=== PATIENT | female | born 1980 | race American Indian/Alaskan Native ===

== ENCOUNTER 2016-12-17 07:48 | Emergency (ER) | payer SELFPAY ==
[2016-12-17 08:06] VITALS: BP 132/84
[2016-12-17 08:35] LABS: Basophils % (Auto) 0.5 % (0.0-1.8); Eosinophils % (Auto) 0.9 % (0.0-4.3); Hematocrit 40.3 % (30.3-42.9); Mean Corpuscular HGB Conc 32 % (30-34); Platelet Count 285 K/mm3 (140-440); Red Blood Count 5.88 M/mm3 (3.65-5.03); Red Cell Distribution Width 15.5 % (13.2-15.2); White Blood Count 8.5 K/mm3 (4.5-11.0)
[2016-12-17 08:43] LABS: Mean Corpuscular Hemoglobin 22 pg (28-32); Mean Corpuscular Volume 69 fl (79-97)
[2016-12-17 08:43] LABS: Bacteria,Urine 1+ /HPF (Negative); Bilirubin,Urine NEG (Negative); Blood,Urine LG (Negative); Ketones,Urine NEG (Negative); Leukocyte Esterase,Urine LG (Negative); Mucus,Urine FEW /HPF; Nitrite,Urine NEG (Negative)
[2016-12-17 08:49] LABS: RBC,Urine > 182.0 /HPF (0.0-6.0)
[2016-12-17] MEDS ORDERED: XYLOCAINE 1% MPF 5 mL INFILTRATI ONE (10:01)
[2016-12-17] MEDS ORDERED: ZITHROMAX PO ONE (10:01)
[2016-12-17] MEDS ORDERED: ROCEPHIN IM ONE (10:01)
--- NOTE | 2016-12-17 10:02 | Emergency Department Report ---
ED Female HPI - General Chief complaint: Vaginal Bleeding Stated complaint: VAGINAL BLEEDING Time Seen by Provider: 12/17/16 09:52 Source: patient Mode of arrival: Ambulatory Limitations: No Limitations - Related Data Allergies Allergy/AdvReac Type Severity Reaction Status Date / Time No Known Allergies Allergy Verified 12/17/16 08:02 ED Review of Systems ROS: Stated complaint: VAGINAL BLEEDING Other details as noted in HPI ED Past Medical Hx - Past Medical History Previous Medical History?: No - Surgical History Past Surgical History?: No - Social History Smoking Status: Never Smoker Substance Use Type: None ED Physical Exam - General Limitations: No Limitations ED Course Vital Signs 12/17/16 08:03 Temperature 98.6 F Pulse Rate 94 H Respiratory 20 Rate Blood Pressure 132/84 O2 Sat by Pulse 100 Oximetry ED Medical Decision Making - Lab Data Result diagrams: 12/17/16 08:19 Critical care attestation.: If time is entered above; I have spent that time in minutes in the direct care of this critically ill patient, excluding procedure time. ED Disposition Condition: Stable Referrals: PRIMARY CARE, [Primary Care Provider] - 3-5 Days
--- NOTE | 2016-12-17 10:54 | Emergency Department Report ---
Entered by NAOMY MCFADDEN, acting as scribe for KALYAN SOLORZANO PA. ED Female HPI - General Chief complaint: Vaginal Bleeding Stated complaint: VAGINAL BLEEDING Time Seen by Provider: 12/17/16 09:31 Source: patient Mode of arrival: Ambulatory Limitations: No Limitations - History of Present Illness Initial comments: 36 y/o female with PMHx of bacterial vaginosis, presents to the ED c/o acute vaginal bleeding that began 2 weeks ago. States she had an interruption in her control pill schedule, was off of control for 2 weeks. Subsequently developed mild vaginal bleeding and intermittent spotting. Restarted control again on this Tuesday. Associated symptoms include foul smelling urine but she denies fever and chills. Patient states bleeding off and on after her period 2 weeks ago. She started back on control pills 4 days ago. Patient has experienced similar symptoms in the past. States she had unprotected sex. No alleviating or aggravating factors. NKDA. LMP 12/03/16. Complaint: vaginal bleeding Onset/Timin -: Sudden, week(s) Radiation: non-radiating Severity: mild Improves with: none Worsens with: none Are you Now?: No Last Menstrual Period: 12/03/16 EDC: 09/09/17 Associated Symptoms: vaginal bleeding, other (foul smelling urine). denies: fever/chills - Related Data Sexually active: Yes : 2 Para: 1 A: 1 Previous Rx's Medication Instructions Recorded Last Taken Type Nitrofurantoin [place]/M-Cryst 100 mg PO Q12HR #14 capsule 12/17/16 Unknown Rx [Macrobid CAP] Allergies Allergy/AdvReac Type Severity Reaction Status Date / Time No Known Allergies Allergy Verified 12/17/16 08:02 ED Review of Systems Comment: All other systems reviewed and negative Constitutional: denies: chills, fever Genitourinary: other (vaginal bleeding, foul smelling urine) ED Past Medical Hx - Past Medical History Previous Medical History?: No - Surgical History Past Surgical History?: No - Social History Smoking Status: Never Smoker Substance Use Type: None - Medications Home Medications: Home Medications Medication Instructions Recorded Confirmed Last Taken Type Nitrofurantoin [place]/M-Cryst 100 mg PO Q12HR #14 capsule 12/17/16 Unknown Rx [Macrobid CAP] ED Physical Exam - General Limitations: No Limitations General appearance: alert, in no apparent distress - Head Head exam: Present: atraumatic, normocephalic, normal inspection - Eye Eye exam: Present: normal appearance, PERRL, EOMI Pupils: Present: normal accommodation - ENT ENT exam: Present: normal exam, normal orophraynx, mucous membranes moist, normal external ear exam - Neck Neck exam: Present: normal inspection, full ROM. Absent: tenderness - Respiratory Respiratory exam: Present: normal lung sounds bilaterally. Absent: wheezes, rales, rhonchi - Cardiovascular Cardiovascular Exam: Present: regular rate, normal rhythm, normal heart sounds. Absent: systolic murmur, diastolic murmur, rubs, gallop - GI/Abdominal GI/Abdominal exam: Present: soft, normal bowel sounds. Absent: tenderness, guarding, rebound, mass, hernia - External exam: Present: normal external exam Speculum exam: Present: normal speculum exam, vaginal bleeding Bi-manual exam: Present: normal bi-manual exam - Extremities Exam Extremities exam: Present: normal inspection, full ROM, normal capillary refill. Absent: tenderness, pedal edema, joint swelling, calf tenderness - Back Exam Back exam: Present: normal inspection, full ROM. Absent: tenderness, CVA tenderness (R), CVA tenderness (L) - Neurological Exam Neurological exam: Present: alert, oriented X3 - Psychiatric Psychiatric exam: Present: normal affect, normal mood - Skin Skin exam: Present: warm, dry, intact, normal color. Absent: rash ED Course Vital Signs 12/17/16 08:03 Temperature 98.6 F Pulse Rate 94 H Respiratory 20 Rate Blood Pressure 132/84 O2 Sat by Pulse 100 Oximetry ED Medical Decision Making - Lab Data Result diagrams: 12/17/16 08:19 - Medical Decision Making a/p: withdrawal bleeding from interruption of BC schedule, UTI 1- macrobid 7 day course, GC culture sent, pt treated empirically, wet prep negative 2- f/u with obgyn 3- I advised patient to return to the ED for any fevers chills nausea vomiting or abdominal pain. ED Disposition Clinical Impression: Vaginal bleeding UTI (urinary tract infection) Qualifiers: Urinary tract infection type: acute cystitis Hematuria presence: without hematuria Qualified Code(s): N30.00 - Acute cystitis without hematuria Disposition: DC-01 TO HOME OR SELFCARE Is pt being admited?: No Does the pt Need Aspirin: No Condition: Stable Instructions: Dysfunctional Uterine Bleeding (ED), Urinary Tract Infection in Women (ED) Prescriptions: Nitrofurantoin [place]/M-Cryst [Macrobid CAP] 100 mg PO Q12HR #14 capsule Referrals: [facility] [Provider Group] - 3-5 Days ROSITA MARQUEZ MD [Staff Physician] - 3-5 Days Forms: Work/School Release Form(ED) Time of Disposition: 10:51 This documentation as recorded by the BOGDAN katz ELIZABETH,accurately reflects the service I personally performed and the decisions made by ,KALYAN SOLORZANO PA.
== END 2016-12-17 11:04 | disposition home or self-care (01) ==
LOC: ED 07:48
DX: N30.00 Acute cystitis without hematuria (principal); N93.9 Abnormal uterine and vaginal bleeding, unspecified
CPT/HCPCS: 36415; 81001; 81025; 84702; 85025; 86850; 86900; 86901; 87210; 87591; 96372; 99284; J0696

== ENCOUNTER 2017-01-14 20:48 | Emergency (ER) | payer SELFPAY ==
[2017-01-14 22:37] LABS: Bilirubin,Urine NEG (Negative); Blood,Urine SM (Negative); Ketones,Urine NEG (Negative); Leukocyte Esterase,Urine TR (Negative); Mucus,Urine FEW /HPF; Nitrite,Urine NEG (Negative); Protein,Urine <15 mg/dL mg/dL (Negative); Urobilinogen,Urine < 2.0 mg/dL (<2.0)
--- NOTE | 2017-01-15 00:30 | Emergency Department Report ---
ED Female HPI - General Chief complaint: Urogenital-Female Stated complaint: UTI SX Time Seen by Provider: 01/15/17 00:17 Source: patient Mode of arrival: Ambulatory Limitations: No Limitations - History of Present Illness Initial comments: Patient comes into the ER today with complaints of dysuria and small amount of blood when she wipes that she noticed a couple days ago. Patient states that she was here approximately 3 weeks ago with the same symptoms and diagnosed with a UTI. She was put on Macrobid for 1 week and states that her symptoms did improve. Patient states that her symptoms now are the same way that her UTI started and she is concerned that may be the infection didn't fully go away. Patient denies any abdominal pain, flank pain, body aches, diarrhea, vomiting. MD Complaint: dysuria - Related Data Previous Rx's Medication Instructions Recorded Last Taken Type Nitrofurantoin [place]/M-Cryst 100 mg PO Q12HR #14 capsule 12/17/16 Unknown Rx [Macrobid CAP] Ciprofloxacin HCl [Ciprofloxacin 500 mg PO BID #20 tablet 01/15/17 Unknown Rx TAB] Allergies Allergy/AdvReac Type Severity Reaction Status Date / Time No Known Allergies Allergy Verified 12/17/16 08:02 ED Review of Systems ROS: Stated complaint: UTI SX Other details as noted in HPI Constitutional: denies: chills, fever Eyes: denies: eye pain, eye discharge, vision change ENT: denies: ear pain, throat pain Respiratory: denies: cough, shortness of breath, wheezing Cardiovascular: denies: chest pain, palpitations Endocrine: no symptoms reported Gastrointestinal: denies: abdominal pain, nausea, diarrhea Genitourinary: dysuria, hematuria. denies: urgency, discharge Musculoskeletal: denies: back pain, joint swelling, arthralgia Skin: denies: rash, lesions Neurological: denies: headache, weakness, paresthesias Psychiatric: denies: anxiety, depression Hematological/Lymphatic: denies: easy bleeding, easy bruising ED Past Medical Hx - Past Medical History Previous Medical History?: Yes Hx Kidney Stones: Yes Additional medical history: UTI - Surgical History Past Surgical History?: Yes Additional Surgical History: FOR KIDNEY STONES - Social History Smoking Status: Never Smoker Substance Use Type: Alcohol - Medications Home Medications: Home Medications Medication Instructions Recorded Confirmed Last Taken Type Nitrofurantoin [place]/M-Cryst 100 mg PO Q12HR #14 capsule 12/17/16 Unknown Rx [Macrobid CAP] Ciprofloxacin HCl [Ciprofloxacin 500 mg PO BID #20 tablet 01/15/17 Unknown Rx TAB] ED Physical Exam - General Limitations: No Limitations General appearance: alert, in no apparent distress - Head Head exam: Present: atraumatic, normocephalic - Eye Eye exam: Present: normal appearance - ENT ENT exam: Present: mucous membranes moist - Neck Neck exam: Present: normal inspection - Respiratory Respiratory exam: Present: normal lung sounds bilaterally. Absent: respiratory distress - Cardiovascular Cardiovascular Exam: Present: regular rate, normal rhythm. Absent: systolic murmur, diastolic murmur, rubs, gallop - GI/Abdominal GI/Abdominal exam: Present: soft, normal bowel sounds. Absent: distended, tenderness, guarding, rebound - Extremities Exam Extremities exam: Present: normal inspection - Back Exam Back exam: Present: normal inspection. Absent: CVA tenderness (R), CVA tenderness (L) - Neurological Exam Neurological exam: Present: alert, oriented X3, CN II-XII intact - Psychiatric Psychiatric exam: Present: normal affect, normal mood - Skin Skin exam: Present: warm, dry, intact, normal color. Absent: rash ED Course Vital Signs 01/14/17 21:09 Temperature 99.0 F Pulse Rate 69 Respiratory 20 Rate Blood Pressure 115/80 O2 Sat by Pulse 100 Oximetry ED Medical Decision Making - Lab Data Lab Results 01/14/17 Range/Units 21:30 Urine Color Yellow (Yellow) Urine Turbidity Clear (Clear) Urine pH 5.0 (5.0-7.0) Ur Specific Lopez 1.015 (1.003-1.030) Urine Protein <15 mg/dl (Negative) mg/dL Urine Glucose (UA) Neg (Negative) mg/dL Urine Ketones Neg (Negative) mg/dL Urine Blood Sm (Negative) Urine Nitrite Neg (Negative) Urine Bilirubin Neg (Negative) Urine Urobilinogen < 2.0 (<2.0) mg/dL Ur Leukocyte Esterase Tr (Negative) Urine WBC (Auto) 2.0 (0.0-6.0) /HPF Urine RBC (Auto) 3.0 (0.0-6.0) /HPF U Epithel Cells (Auto) 3.0 (0-13.0) /HPF Urine Mucus Few /HPF Urine HCG, Qual Negative (Negative) - Medical Decision Making Patient is nontoxic and hemodynamically stable. Urine results reviewed and discussed the patient room. I believe that patient's UTI may have not fully resolved due to the quick turnaround of her symptoms returning. I will start patient on a different antibiotic and encouraged her to follow up with her primary care doctor in 1 week to ensure that her UTI has resolved. Patient is in agreement with treatment plan patient stable for discharge. Critical care attestation.: If time is entered above; I have spent that time in minutes in the direct care of this critically ill patient, excluding procedure time. ED Disposition Clinical Impression: UTI (urinary tract infection) Disposition: - TO HOME OR SELFCARE Is pt being admited?: No Does the pt Need Aspirin: No Condition: Good Instructions: Urinary Tract Infection in Women (ED) Prescriptions: Ciprofloxacin HCl [Ciprofloxacin TAB] 500 mg PO BID #20 tablet Referrals: PRIMARY CARE, [Primary Care Provider] - 3-5 Days Time of Disposition: 00:30
[2017-01-15 01:00] VITALS: BP 120/78
== END 2017-01-15 01:00 | disposition home or self-care (01) ==
LOC: ED 20:48
DX: N39.0 Urinary tract infection, site not specified (principal)
CPT/HCPCS: 81001; 81025; 99283

== ENCOUNTER 2018-08-19 16:40 | Emergency (ER) | payer SELFPAY ==
[2018-08-19 17:23] VITALS: BP 121/77
--- NOTE | 2018-08-19 17:29 | Emergency Department Report ---
Chief Complaint: Allergic Reaction Stated Complaint: ALLERGIC REACTION Time Seen by Provider: 08/19/18 17:29 - HPI History of Present Illness: RASH ABC INTACT NO WHEEZING VSS MSE COMPLETED - Exam Vital Signs: Vital Signs 08/19/18 17:21 Temperature 97.9 F Pulse Rate 114 H Respiratory 16 Rate Blood Pressure 121/77 Blood Pressure 121/77 [Left] O2 Sat by Pulse 100 Oximetry MSE screening note: Focused history and physical exam performed. Due to findings the following was ordered: ED Disposition for MSE Condition: Stable
--- NOTE | 2018-08-19 19:25 | Emergency Department Report ---
ED Rash HPI - HPI Chief Complaint: Allergic Reaction Stated Complaint: ALLERGIC REACTION Time Seen by Provider: 08/19/18 17:29 Duration: 1 week Location: Neck, Upper Extremities, Lower Extremities Suspected Cause: Unknown Rash Symptoms: Yes Itching (C upper and lower extremities and neck area.), Yes Tongue/Oral Swelling (she reported that she had some lip swelling but she is taking Benadryl and is better now), No Facial Swelling, No Breathing Difficulties, No Choking Sensation, No Wheezing/Dyspnea, No Peeling, No Blistering, No Fever, No Lightheaded, No Malaise, No Myalgias Severity: moderate Other History: This is a 37-year-old female who is here report that she is have hives and itching to her upper and lower extremities and neck over the last week and she has been taking Benadryl and hydrocortisone cream but it keeps coming and going. Denies any fever or chills or any nausea vomiting. Denies any sore throats, wheezing, cough or stridor. Denies any shortness of breath. She did report that she had some lip swelling which was minor and she has been taking the Benadryl and her lip is better now. ED Review of Systems ROS: Stated complaint: ALLERGIC REACTION Other details as noted in HPI Constitutional: denies: chills, fever Eyes: denies: eye discharge ENT: other (swelling to lip). denies: ear pain, throat pain, congestion Respiratory: denies: cough, shortness of breath, SOB with exertion, SOB at rest, stridor, wheezing Cardiovascular: denies: chest pain, palpitations, edema, syncope Gastrointestinal: denies: nausea, vomiting Musculoskeletal: denies: back pain, joint swelling, arthralgia Skin: rash, pruritus Neurological: denies: headache ED Past Medical Hx - Past Medical History Previous Medical History?: Yes Hx Kidney Stones: Yes Additional medical history: UTI - Surgical History Past Surgical History?: Yes Additional Surgical History: FOR KIDNEY STONES - Family History Family history: hypertension - Social History Smoking Status: Never Smoker Substance Use Type: None - Medications Home Medications: Home Medications Medication Instructions Recorded Confirmed Last Taken Type Nitrofurantoin [place]/M-Cryst 100 mg PO Q12HR #14 capsule 12/17/16 Unknown Rx [Macrobid CAP] Ciprofloxacin HCl [Ciprofloxacin 500 mg PO BID #20 tablet 01/15/17 Unknown Rx TAB] hydrOXYzine HCL [Atarax] 25 mg PO Q6HR PRN #20 tablet 08/19/18 Unknown Rx predniSONE [Prednisone] 10 mg PO QAM 6 Days #1 tab.ds.pk 08/19/18 Unknown Rx Rash Exam - Exam General: Vital signs noted. No distress. Alert and acting appropriately. This is a 37-year-old female well-nourished well-developed in no acute distress. HEENT: No Periorbital Edema, No Conjuctival Injection, No Chemosis, No Perioral Edema, No Tongue Edema, No Uvular Edema, No Compromised Airway, No Drooling Lungs: Yes Good Air Exchange, No Wheezes, No Ronchi, No Stridor, No Cough, No Labored Respirations, No Retractions, No Use of Accessory Muscles, No Other Abnormal Lung Sounds Heart: Yes Regular (tachycardic at 114), No Murmur Skin: Yes Urticarial Rash (sparse scattered to her upper and lower extremity and around neck and chest area.), Yes Erythema (whelps), No Maculopapular Rash, No Morbilliform rash, No Bulla(e), No Excoriations, No Weeping, No Tenderness, No Edema, No Encrustations, No Other Other: Positive: Abdomen Normal, Neurologic Normal, Musculoskeletal Normal ED Course Vital Signs 08/19/18 17:21 Temperature 97.9 F Pulse Rate 114 H Respiratory 16 Rate Blood Pressure 121/77 Blood Pressure 121/77 [Left] O2 Sat by Pulse 100 Oximetry Vital Signs 08/19/18 08/19/18 17:21 19:34 Temperature 97.9 F Pulse Rate 114 H 84 Respiratory 16 Rate Blood Pressure 121/77 Blood Pressure 121/77 [Left] O2 Sat by Pulse 100 Oximetry - Reevaluation(s) Reevaluation #1: 08/19/18 19:34 Patient given Decadron 10 mg I am an emergency room and am unable to give her Benadryl as she is driving. Reevaluation #2: 08/19/18 19:40 Patient stable throughout ED course without any extension of rash or any oral or facial, neck swelling. ED Medical Decision Making - Medical Decision Making This is a 37-year-old female here for report of hives that comes and goes last week and she has been taken Benadryl and topical steroids without any relief. Patient was given Decadron 10 mg IM in emergency room and she remained stable. Plan to discharge patient home on Atarax and prednisone Dosepak and I told her that if her symptoms worsen to return to the emergency room otherwise follow-up with her primary care physician. She is in agreement. Vital signs stable and she is afebrile. Critical care attestation.: If time is entered above; I have spent that time in minutes in the direct care of this critically ill patient, excluding procedure time. ED Disposition Clinical Impression: Hives, Pruritus Disposition: DC-01 TO HOME OR SELFCARE Is pt being admited?: No Does the pt Need Aspirin: No Condition: Stable Instructions: Urticaria (ED), Itchy Skin (ED) Additional Instructions: Please follow up with director of community services and U primary care physician in 2-3 days. Pain medication as prescribed. Atarax can sometimes make you drowsy so please do not drive or operate heavy machinery while taking this medication for itching. If your condition worsens and your symptoms worsen, please return to the emergency room. Referrals: VAIBHAV AZAR MD [Staff Physician] - 2-3 Days [facility] JOS[facility] LUIS LABOY MD [Primary Care Provider] - 2-3 Days Forms: Work/School Release Form(ED)
[2018-08-19] MEDS ORDERED: DECADRON IM STA (19:30)
== END 2018-08-19 20:00 | disposition home or self-care (01) ==
LOC: ED 16:40
DX: L50.9 Urticaria, unspecified (principal); L29.9 Pruritus, unspecified; Z87.442 Personal history of urinary calculi
CPT/HCPCS: 96372; 99282; J1100

== ENCOUNTER 2018-10-08 08:21 | Emergency (ER) | payer OTHER ==
[2018-10-08 08:25] VITALS: BP 114/77
[2018-10-08] MEDS ORDERED: DECADRON IM STA (10:31)
--- NOTE | 2018-10-08 10:38 | Emergency Department Report ---
ED Allergic Reaction HPI - General Chief complaint: Skin Rash Stated complaint: HIVES/SWOLLEN LIPS Time Seen by Provider: 10/08/18 10:24 Source: patient Mode of arrival: Ambulatory Limitations: No Limitations - History of Present Illness Initial Comments: Mrs. Blair is a healthy 37-year-old female who presents with recurrent hives and lip swelling for the last 2 months. She improved with steroids 2 months ago. No previous history of food or drug allergies. She has not had symptoms due to seasonal allergies. She recently moved from [facility] 2 years ago to [place]. She had mild lip swelling yesterday which has since resolved. Urticaria has been intermittent over the last 2 months. No improvement with prescribed hydroxyzine. MD Complaint: hives, facial swelling -: Gradual, month(s) (2) Symptoms: rash, lip swelling Severity: mild Treatment Prior to Arrival: none - Related Data Previous Rx's Medication Instructions Recorded Last Taken Type Nitrofurantoin [place]/M-Cryst 100 mg PO Q12HR #14 capsule 12/17/16 Unknown Rx [Macrobid CAP] Ciprofloxacin HCl [Ciprofloxacin 500 mg PO BID #20 tablet 01/15/17 Unknown Rx TAB] hydrOXYzine HCL [Atarax] 25 mg PO Q6HR PRN #20 tablet 08/19/18 Unknown Rx predniSONE [Prednisone] 10 mg PO QAM 6 Days #1 tab.ds.pk 08/19/18 Unknown Rx EPINEPHrine [Epipen] 0.3 mg IJ ONCE PRN #1 auto.injct 10/08/18 Unknown Rx Loratadine 10 mg PO DAILY 30 Days #30 tablet 10/08/18 Unknown Rx Prednisone [predniSONE 10 mg 10 mg PO .TAPER #1 tab.ds.pk 10/08/18 Unknown Rx (6-Day Pack, 21 Tabs)] Allergies Allergy/AdvReac Type Severity Reaction Status Date / Time No Known Allergies Allergy Verified 10/08/18 08:22 ED Review of Systems ROS: Stated complaint: HIVES/SWOLLEN LIPS Other details as noted in HPI Comment: All other systems reviewed and negative Constitutional: denies: fever, malaise Cardiovascular: denies: chest pain Gastrointestinal: denies: abdominal pain ED Past Medical Hx - Past Medical History Previous Medical History?: Yes Hx Kidney Stones: Yes Additional medical history: UTI - Surgical History Past Surgical History?: Yes Additional Surgical History: FOR KIDNEY STONES - Social History Smoking Status: Never Smoker Substance Use Type: None - Medications Home Medications: Home Medications Medication Instructions Recorded Confirmed Last Taken Type Nitrofurantoin [place]/M-Cryst 100 mg PO Q12HR #14 capsule 12/17/16 Unknown Rx [Macrobid CAP] Ciprofloxacin HCl [Ciprofloxacin 500 mg PO BID #20 tablet 01/15/17 Unknown Rx TAB] hydrOXYzine HCL [Atarax] 25 mg PO Q6HR PRN #20 tablet 08/19/18 Unknown Rx predniSONE [Prednisone] 10 mg PO QAM 6 Days #1 tab.ds.pk 08/19/18 Unknown Rx EPINEPHrine [Epipen] 0.3 mg IJ ONCE PRN #1 auto.injct 10/08/18 Unknown Rx Loratadine 10 mg PO DAILY 30 Days #30 tablet 10/08/18 Unknown Rx Prednisone [predniSONE 10 mg 10 mg PO .TAPER #1 tab.ds.pk 10/08/18 Unknown Rx (6-Day Pack, 21 Tabs)] ED Physical Exam - General Limitations: No Limitations General appearance: alert, in no apparent distress - Head Head exam: Present: atraumatic, normocephalic - Eye Eye exam: Present: normal appearance - ENT ENT exam: Present: mucous membranes moist - Neck Neck exam: Present: normal inspection, full ROM - Respiratory Respiratory exam: Present: normal lung sounds bilaterally. Absent: respiratory distress, wheezes, rales, rhonchi - Cardiovascular Cardiovascular Exam: Present: regular rate, normal rhythm, normal heart sounds. Absent: systolic murmur, diastolic murmur, rubs, gallop - GI/Abdominal GI/Abdominal exam: Present: soft, normal bowel sounds. Absent: distended, tenderness, guarding, rebound - Extremities Exam Extremities exam: Present: normal inspection - Back Exam Back exam: Present: normal inspection - Neurological Exam Neurological exam: Present: alert, oriented X3 - Psychiatric Psychiatric exam: Present: normal affect, normal mood - Skin Skin exam: Present: warm, dry, intact, normal color. Absent: rash ED Course Vital Signs 10/08/18 08:22 Temperature 98.1 F Pulse Rate 83 Respiratory 18 Rate Blood Pressure 114/77 O2 Sat by Pulse 97 Oximetry ED Medical Decision Making - Medical Decision Making Recurrent anaphylactic reaction ?idiopathic Given IM dexamethasone Prescribed loratadine for 30 days, prescribed famotidine, prednisone taper and EpiPen Critical care attestation.: If time is entered above; I have spent that time in minutes in the direct care of this critically ill patient, excluding procedure time. ED Disposition Clinical Impression: Idiopathic anaphylactic reaction Disposition: TO HOME OR SELFCARE Is pt being admited?: No Does the pt Need Aspirin: No Condition: Stable Instructions: Anaphylaxis (ED) Prescriptions: EPINEPHrine [Epipen] 0.3 mg IJ ONCE PRN #1 auto.injct PRN Reason: severe allergic reaction Loratadine 10 mg PO DAILY 30 Days #30 tablet Prednisone [predniSONE 10 mg (6-Day Pack, 21 Tabs)] 10 mg PO .TAPER #1 tab.ds.pk Referrals: JONNY TAPIA MD [Referring] - 3-5 Days ALVARO HURTADO MD [Referring] - 3-5 Days
== END 2018-10-08 10:51 | disposition home or self-care (01) ==
LOC: ED 08:21
DX: T78.2XXA Anaphylactic shock, unspecified, initial encounter (principal); Y92.89 Other specified places as the place of occurrence of the external cause
CPT/HCPCS: 96372; 99281; J1100

== ENCOUNTER 2018-11-21 08:53 | Emergency (ER) | payer OTHER ==
[2018-11-21 09:02] VITALS: BP 128/85
[2018-11-21] MEDS ORDERED: SOLU-Medrol IM ONE (09:24)
--- NOTE | 2018-11-21 09:30 | Emergency Department Report ---
ED Rash HPI - HPI Chief Complaint: Skin Rash Stated Complaint: HIVES OUTBREAK Time Seen by Provider: 11/21/18 09:15 Duration: intermittent x 3 months Location: Other (diffusely) Suspected Cause: Unknown Rash Symptoms: Yes Itching, No Facial Swelling, No Tongue/Oral Swelling, No Breathing Difficulties, No Choking Sensation, No Wheezing/Dyspnea, No Peeling, No Blistering, No Fever, No Lightheaded, No Malaise, No Myalgias Severity: moderate ED Review of Systems ROS: Stated complaint: HIVES OUTBREAK Other details as noted in HPI Comment: All other systems reviewed and negative Constitutional: denies: chills, fever Respiratory: denies: shortness of breath, wheezing Skin: rash ED Past Medical Hx - Past Medical History Hx Kidney Stones: Yes Additional medical history: UTI - Surgical History Additional Surgical History: FOR KIDNEY STONES - Social History Smoking Status: Never Smoker Substance Use Type: None - Medications Home Medications: Home Medications Medication Instructions Recorded Confirmed Last Taken Type Nitrofurantoin [place]/M-Cryst 100 mg PO Q12HR #14 capsule 12/17/16 Unknown Rx [Macrobid CAP] Ciprofloxacin HCl [Ciprofloxacin 500 mg PO BID #20 tablet 01/15/17 Unknown Rx TAB] hydrOXYzine HCL [Atarax] 25 mg PO Q6HR PRN #20 tablet 08/19/18 Unknown Rx predniSONE [Prednisone] 10 mg PO QAM 6 Days #1 tab.ds.pk 08/19/18 Unknown Rx EPINEPHrine [Epipen] 0.3 mg IJ ONCE PRN #1 auto.injct 10/08/18 Unknown Rx Loratadine 10 mg PO DAILY 30 Days #30 tablet 10/08/18 Unknown Rx Prednisone [predniSONE 10 mg 10 mg PO .TAPER #1 tab.ds.pk 10/08/18 Unknown Rx (6-Day Pack, 21 Tabs)] predniSONE [Deltasone] 50 mg PO QDAY #5 tab 11/21/18 Unknown Rx Rash Exam - Exam General: Vital signs noted. No distress. Alert and acting appropriately. HEENT: No Periorbital Edema, No Conjuctival Injection, No Chemosis, No Perioral Edema, No Tongue Edema, No Uvular Edema, No Compromised Airway, No Drooling Lungs: Yes Good Air Exchange, No Wheezes, No Ronchi, No Stridor, No Cough, No Labored Respirations, No Retractions, No Use of Accessory Muscles, No Other Abnormal Lung Sounds Heart: Yes Regular Skin: Yes Urticarial Rash, No Tenderness, No Edema, No Encrustations Other: Positive: Abdomen Normal, Neurologic Normal, Musculoskeletal Normal ED Course Vital Signs 11/21/18 09:01 Temperature 97.8 F Pulse Rate 92 H Respiratory 16 Rate Blood Pressure 128/85 O2 Sat by Pulse 99 Oximetry ED Medical Decision Making - Medical Decision Making - hives x 3 months - no airway compromise, no resp distress - urticarial rash present - solumedrol IM given - rx given for prednisone - dermatology f/u given - Differential Diagnosis urticaria Critical care attestation.: If time is entered above; I have spent that time in minutes in the direct care of this critically ill patient, excluding procedure time. ED Disposition Clinical Impression: Urticaria Disposition: - TO HOME OR SELFCARE Is pt being admited?: No Condition: Stable Instructions: Urticaria (ED), Allergies (ED) Additional Instructions: Dr Primitivo Good, [employer]ilingual [employer] [address] [place] [id number] Prescriptions: predniSONE [Deltasone] 50 mg PO QDAY #5 tab Referrals: JOSÉ LUIS TOLLIVER MD [Primary Care Provider] - 3-5 Days Time of Disposition: :28
== END 2018-11-21 09:36 | disposition home or self-care (01) ==
LOC: ED 08:53
DX: L50.9 Urticaria, unspecified (principal); L29.9 Pruritus, unspecified; Z87.442 Personal history of urinary calculi
CPT/HCPCS: 96372; 99282; J2930

== ENCOUNTER 2018-11-23 07:35 | Emergency (ER) | payer OTHER ==
[2018-11-23 07:43] VITALS: BP 120/81
--- NOTE | 2018-11-23 08:09 | Emergency Department Report ---
HPI - General Chief Complaint: Allergic Reaction Time Seen by Provider: 11/23/18 08:02 - HPI HPI: She has a 37-year-old female who comes to the ER with a worsening of her rash. She was seen here yesterday and sent home on prednisone 50 mg for 5 days. She states that the rash is getting worse. Patient states that she has been in the ER often with this rash and gets Dosepaks which helped her. She also states that she's been referred to dermatology but has not followed up. She does not know the trigger of the rash. Nothing [id number] such as Benadryl or Pepcid has worked. She has also tried Vistaril which does not work. She states that only this dose pack and shots helped her alleviate the itching from her rash. The rash is generalized urticarial appearing. Nobody in the home has the rash. The patient has no systemic symptoms. She has no underlying medical problems. ED Past Medical Hx - Past Medical History Previous Medical History?: Yes Hx Kidney Stones: Yes Additional medical history: UTI - Surgical History Past Surgical History?: Yes Additional Surgical History: FOR KIDNEY STONES - Family History Family history: no significant - Social History Smoking Status: Never Smoker Substance Use Type: Alcohol - Medications Home Medications: Home Medications Medication Instructions Recorded Confirmed Last Taken Type hydrOXYzine HCL [Atarax] 25 mg PO Q6HR PRN #20 tablet 08/19/18 Unknown Rx EPINEPHrine [Epipen] 0.3 mg IJ ONCE PRN #1 auto.injct 10/08/18 Unknown Rx Loratadine 10 mg PO DAILY 30 Days #30 tablet 10/08/18 Unknown Rx methylPREDNISolone [Medrol 4MG 4 mg PO FS #1 tab.ds.pk 11/23/18 Unknown Rx DOSEPAK (21 tabs)] ED Review of Systems ROS: Stated complaint: (L)SIDE HIVES BREAKOUT TO MEDS/PAIN Other details as noted in HPI Comment: All other systems reviewed and negative Physical Exam - Physical Exam Vital Signs: Vital Signs 11/23/18 07:40 Temperature 97.7 F Pulse Rate 69 Respiratory 16 Rate Blood Pressure 120/81 O2 Sat by Pulse 99 Oximetry General: - Head Head exam: Present: atraumatic, normocephalic - Eye Eye exam: Present: normal appearance, EOMI. Absent: nystagmus - ENT ENT exam: Present: normal exam, normal orophraynx, mucous membranes moist, normal external ear exam, no lymphadenopathy - Neck Neck exam: Present: normal inspection, full ROM. Absent: tenderness, meningismus - Respiratory Respiratory exam: Present: normal lung sounds bilaterally. Absent: respiratory distress, wheezes, rales, rhonchi, stridor, chest wall tenderness, accessory muscle use, decreased breath sounds, prolonged expiratory - Cardiovascular Cardiovascular Exam: Present: regular rate, normal rhythm, normal heart sounds. Absent: bradycardia, tachycardia, irregular rhythm, systolic murmur, diastolic murmur, rubs, gallop, JVD, edema - GI/Abdominal GI/Abdominal exam: Present: soft, non tender on light and deep palpation. Absent: distended, tenderness, guarding, rebound, rigid, pulsatile mass - Rectal Rectal exam: Present: deferred - Extremities Exam Extremities exam: Present: normal inspection, full ROM, other (2+ pulses noted in the bilateral upper extremities. Bilateral lower extremities with 2+ DP bilateral. Full ROM. Absent: calf tenderness - Back Exam Back exam: Present: normal inspection, full ROM. Absent: tenderness, CVA tenderness (R), CVA tenderness (L), paraspinal tenderness, vertebral tenderness - Neurological Exam Neurological exam: Present: alert, oriented X3, normal gait, other (Extraocular movements intact. Tongue midline. No facial droop. Facial sensation intact to light touch in the V1, V2, V3 distribution bilaterally. 5 and 5 strength in 4 extremities.. Sensation is intact to light touch in 4 extremities.). Absent: motor sensory deficit - Psychiatric Psychiatric exam: normal affect and mood - Skin Skin exam: Present: warm, dry, intact, normal color. gen urticarial rash. noone in home with same. no open lesions. no systemic illness or symptoms. rash is generalized. abc intact. ED Course Vital Signs 11/23/18 07:40 Temperature 97.7 F Pulse Rate 69 Respiratory 16 Rate Blood Pressure 120/81 O2 Sat by Pulse 99 Oximetry ED Medical Decision Making - Medical Decision Making Vital Signs 11/23/18 07:40 Temperature 97.7 F Pulse Rate 69 Respiratory 16 Rate Blood Pressure 120/81 O2 Sat by Pulse 99 Oximetry medicated with depomedrol and changed to a dose pack per pt request discussed need to see derm and not ER for this ongoing issues. dc home wtih stable VS and no [place]. Critical care attestation.: If time is entered above; I have spent that time in minutes in the direct care of this critically ill patient, excluding procedure time. ED Disposition Clinical Impression: Urticaria Disposition: TO HOME OR SELFCARE Is pt being admited?: No Does the pt Need Aspirin: No Condition: Stable Instructions: Urticaria (ED) Additional Instructions: DIET TOLERATED MEDS ORDERED TODAY IN ER FOLLOW INSTRUCTIONS ON THE BOTTLE FOLLOW UP PCP WITHIN 48 HOURS TO ENSURE YOU ARE GETTING BETTER ACTIVITY TOLERATED MOTRIN OR TYLENOL FOR PAIN OR FEVER RETURN TO THE ER FOR WORSENING SYMPTOMS NOT RELIEVED BY YOUR MEDICATIONS. Referrals: JOSÉ LUIS TOLLIVER MD [Primary Care Provider] - 3-5 Days ANNEMARIE MODI MD [Referring] - 3-5 Days Time of Disposition: 08:12
[2018-11-23] MEDS ORDERED: DEPO-Medrol IM ONE (08:13)
== END 2018-11-23 08:28 | disposition home or self-care (01) ==
LOC: ED 07:35
DX: L50.9 Urticaria, unspecified (principal)
CPT/HCPCS: 96372; 99282; J1040

== ENCOUNTER 2018-12-08 18:51 | Emergency (ER) | payer OTHER ==
--- NOTE | 2018-12-08 18:55 | Event Note ---
ED Screening Note ED Screening Note: pink eye no trauma This initial assessment/diagnostic orders/clinical plan/treatment(s) is/are subject to change based on patients health status, clinical progression and re- assessment by fellow clinical providers in the ED. Further treatment and workup at subsequent clinical providers discretion. Patient/guardian urged not to elope from the ED as their condition may be serious if not clinically assessed and managed. Initial orders include: va reeval
--- NOTE | 2018-12-08 23:46 | Emergency Department Report ---
[facility] Chief Complaint: Eye Problems Stated Complaint: POSS PINK EYE Time Seen by Provider: 12/08/18 18:54 Duration: 2 Days Side: Left Severity: moderate Symptoms: Yes Eye Itching, Yes Eye Redness, Yes Mucous Drainage, Yes Purulent Drainage, Yes H/O Allergic Rhinitis, No Eye Pain, No Blurred Vision, No Preceding URI, No Contact Lens Use, No Trauma, No Fever, No Headache Other History: This is a 38 year-old female who presents to emergency room with redness and irritation to left eye for 2 days. Past medical history of kidney stones and astigmatism. She states she wears glasses only and no contact use. She reports some drainage and crusting upon awakening. She states she is currently taken Singulair per PCP for allergic rhinitis which she thought would improve left eye redness. She denies grinding sensation or change in vision, fever, cough. ED Review of Systems ROS: Stated complaint: POSS PINK EYE Other details as noted in HPI Constitutional: denies: chills, fever Eyes: eye discharge (left eye), other (left eye redness). denies: eye pain, vi cosme change ENT: denies: ear pain, throat pain Respiratory: denies: cough, shortness of breath, wheezing Cardiovascular: denies: chest pain, palpitations Gastrointestinal: denies: abdominal pain, nausea, diarrhea Neurological: denies: headache, weakness, paresthesias Psychiatric: denies: anxiety, depression ED Past Medical Hx - Past Medical History Previous Medical History?: Yes Hx Kidney Stones: Yes Additional medical history: Astigmatism - Surgical History Past Surgical History?: Yes Additional Surgical History: FOR KIDNEY STONES - Social History Smoking Status: Never Smoker Substance Use Type: None - Medications Home Medications: Home Medications Medication Instructions Recorded Confirmed Last Taken Type hydrOXYzine HCL [Atarax] 25 mg PO Q6HR PRN #20 tablet 08/19/18 Unknown Rx EPINEPHrine [Epipen] 0.3 mg IJ ONCE PRN #1 auto.injct 10/08/18 Unknown Rx Loratadine 10 mg PO DAILY 30 Days #30 tablet 10/08/18 Unknown Rx methylPREDNISolone [Medrol 4MG 4 mg PO FS #1 tab.ds.pk 11/23/18 Unknown Rx DOSEPAK (21 tabs)] Azithromycin(Nf)1% Ophth Soln 1 drops OS QDAY #1 bottle 12/08/18 Unknown Rx [Azasite 1% Ophth Soln] [facility] Exam - Exam General: Vital signs noted. No distress. Alert and acting appropriately. Eye Exam: Left Injection, Left Mucous Discharge, Left Purulent Discharge, Both EOMI, Neither Chemosis, Neither Abnormal Pupil, Neither Eye Foreign Body, Neither Lid Foreign Body, Neither Fluorescein Uptake, Neither Fluorescein Uptake (slit lamp), Neither Cell/Flare (slit lamp), Neither Corneal Edema, Neither Photophobia HEENT: No Nasal Congestion, No Pharyngeal Erythema Remainder of HEENT: Normal Lungs: Yes Clear Lung Sounds, Yes Good Air Exchange, No Wheezes, No Stridor, No Cough, No Nasal Flaring, No Retractions, No Use of Accessory Muscles ED Course Vital Signs 12/08/18 20:16 Temperature 97.9 F Pulse Rate 107 H Respiratory 18 Rate Blood Pressure 122/72 O2 Sat by Pulse 100 Oximetry Vital Signs 12/08/18 12/09/18 20:16 00:13 Temperature 97.9 F Pulse Rate 107 H 86 Respiratory 18 16 Rate Blood Pressure 122/72 Blood Pressure 116/78 [Left] O2 Sat by Pulse 100 99 Oximetry ED Medical Decision Making - Medical Decision Making Patient is stable and was examined by me. Vitals normal. Physical assessment susceptible of conjunctivitis on the left. Start azithromycin eyedrops. Discussed plan with patient and she agreed with plan. Discharged home in stable condition. Follow up with PCP in 24-72 hours. Critical care attestation.: If time is entered above; I have spent that time in minutes in the direct care of this critically ill patient, excluding procedure time. ED Disposition Clinical Impression: Conjunctivitis Qualifiers: Conjunctivitis type: acute Acute conjunctivitis type: bacterial Laterality: left Qualified Code(s): H10.32 - Unspecified acute conjunctivitis, left eye Disposition: DC-01 TO HOME OR SELFCARE Is pt being admited?: No Does the pt Need Aspirin: No Condition: Stable Instructions: Conjunctivitis (ED) Additional Instructions: Pinkeye is very contagious so please wash hands frequently. Don't share any towels or bedding to prevent spread of infection. Follow up with primary care doctor in 24-72 hours. Use cool compress to each eye to decrease swelling. Avoid rubbing or touching eyes, because rubbing eyes can cause worsening symptoms. Take medication as prescribed. Return to ER if swelling don't improve or difficulty breathing after 2 days of medication. Prescriptions: Azithromycin(Nf)1% Ophth Soln [Azasite 1% Ophth Soln] 1 drops OS QDAY #1 bottle Referrals: KALYAN ACHARYA MD [Staff Physician] - 3-5 Days [facility] [Provider Group] - 3-5 Days [facility] [Provider Group] - 3-5 Days Forms: Work/School Release Form(ED) Time of Disposition: 23:49
[2018-12-09 00:14] VITALS: BP 116/78
== END 2018-12-09 00:13 | disposition home or self-care (01) ==
LOC: ED 18:51
DX: H10.32 Unspecified acute conjunctivitis, left eye (principal)
CPT/HCPCS: 99282

== ENCOUNTER 2018-12-14 18:30 | Emergency (ER) | payer OTHER ==
[2018-12-14 19:13] VITALS: BP 127/87
--- NOTE | 2018-12-14 19:15 | Emergency Department Report ---
Blank Doc - Documentation Documentation: This is a 38-year-old female that presents with left eye pain and redness. Was treated 1 week ago with gent but is getting worse. This initial assessment/diagnostic orders/clinical plan/treatment(s) is/are subject to change based on patient's health status, clinical progression and re- assessment by fellow clinical providers in the ED. Further treatment and workup at subsequent clinical providers discretion. Patient/guardians urged not to elope from the ED as their condition may be serious if not clinically assessed and managed. Initial orders include: 1- Patient sent to [facility] for further evaluation and treatment 2- visual activity 3- weinberg lamp/tonopen to be done
--- NOTE | 2018-12-14 22:08 | Emergency Department Report ---
ED Eye Problem HPI - General Chief complaint: Eye Problems Stated complaint: PINK EYE/MEDS NOT WORKING Time Seen by Provider: 12/14/18 19:13 Source: patient Mode of arrival: Ambulatory Limitations: No Limitations - History of Present Illness Initial comments: -[place] female to emergency Department complaining of continued eye symptoms. She was seen one week ago and was started on gentamicin drops and states she last drops as prescribed but still having issue with redness and irritation to the eye. Nose heavy mucous buildup. No foreign bodies noted. No photophobia. There has been some tearing MD chief complaint: eye pain, eye redness -: Gradual Onset Description: gradual Location: left eye Eye Symptoms: redness Severity: mild If Pain, Quality: burning Consistency: constant Associated Symptoms: none Treatments Prior to Arrival: none - Related Data Previous Rx's Medication Instructions Recorded Last Taken Type hydrOXYzine HCL [Atarax] 25 mg PO Q6HR PRN #20 tablet 08/19/18 Unknown Rx EPINEPHrine [Epipen] 0.3 mg IJ ONCE PRN #1 auto.injct 10/08/18 Unknown Rx Loratadine 10 mg PO DAILY 30 Days #30 tablet 10/08/18 Unknown Rx methylPREDNISolone [Medrol 4MG 4 mg PO FS #1 tab.ds.pk 11/23/18 Unknown Rx DOSEPAK (21 tabs)] Azithromycin(Nf)1% Ophth Soln 1 drops OS QDAY #1 bottle 12/08/18 Unknown Rx [Azasite 1% Ophth Soln] Gentamicin 0.3% Ophth Soln 1 drops OP Q4H 7 Days #1 bottle 12/09/18 Unknown Rx Ciprofloxacin 0.2%(Nf) 0.25 ml AD BID #1 bottle 12/14/18 Unknown Rx [Ciprofloxacin OTIC] Olopatadine HCl [Pataday 0.2%] 1 drop OP QDAY #1 bottle 12/14/18 Unknown Rx Allergies Allergy/AdvReac Type Severity Reaction Status Date / Time No Known Allergies Allergy Verified 12/08/18 18:52 ED Review of Systems ROS: Stated complaint: PINK EYE/MEDS NOT WORKING Other details as noted in HPI Constitutional: denies: chills, fever Eyes: eye pain. denies: eye discharge, vision change ENT: denies: ear pain, throat pain Respiratory: denies: cough, shortness of breath, wheezing Cardiovascular: denies: chest pain, palpitations Endocrine: no symptoms reported Gastrointestinal: denies: abdominal pain, nausea, diarrhea Genitourinary: denies: urgency, dysuria, discharge Musculoskeletal: denies: back pain, joint swelling, arthralgia Skin: denies: rash, lesions Neurological: denies: headache, weakness, paresthesias Psychiatric: denies: anxiety, depression Hematological/Lymphatic: denies: easy bleeding, easy bruising ED Past Medical Hx - Past Medical History Previous Medical History?: Yes Hx Kidney Stones: Yes Additional medical history: Astigmatism - Surgical History Past Surgical History?: Yes Additional Surgical History: FOR KIDNEY STONES - Social History Smoking Status: Never Smoker Substance Use Type: Alcohol - Medications Home Medications: Home Medications Medication Instructions Recorded Confirmed Last Taken Type hydrOXYzine HCL [Atarax] 25 mg PO Q6HR PRN #20 tablet 08/19/18 Unknown Rx EPINEPHrine [Epipen] 0.3 mg IJ ONCE PRN #1 auto.injct 10/08/18 Unknown Rx Loratadine 10 mg PO DAILY 30 Days #30 tablet 10/08/18 Unknown Rx methylPREDNISolone [Medrol 4MG 4 mg PO FS #1 tab.ds.pk 11/23/18 Unknown Rx DOSEPAK (21 tabs)] Azithromycin(Nf)1% Ophth Soln 1 drops OS QDAY #1 bottle 12/08/18 Unknown Rx [Azasite 1% Ophth Soln] Gentamicin 0.3% Ophth Soln 1 drops OP Q4H 7 Days #1 bottle 12/09/18 Unknown Rx Ciprofloxacin 0.2%(Nf) 0.25 ml AD BID #1 bottle 12/14/18 Unknown Rx [Ciprofloxacin OTIC] Olopatadine HCl [Pataday 0.2%] 1 drop OP QDAY #1 bottle 12/14/18 Unknown Rx ED Physical Exam - General Limitations: No Limitations General appearance: alert, in no apparent distress - Head Head exam: Present: atraumatic, normocephalic - Eye Eye exam: Present: normal appearance, PERRL, conjunctival injection. Absent: scleral icterus, nystagmus, periorbital swelling, periorbital tenderness, other Pupils: Present: normal accommodation - ENT ENT exam: Present: normal exam, normal orophraynx, mucous membranes moist - Neck Neck exam: Present: normal inspection - Respiratory Respiratory exam: Present: normal lung sounds bilaterally. Absent: respiratory distress - Cardiovascular Cardiovascular Exam: Present: regular rate, normal rhythm. Absent: systolic murmur, diastolic murmur, rubs, gallop - GI/Abdominal GI/Abdominal exam: Present: soft, normal bowel sounds - Extremities Exam Extremities exam: Present: normal inspection - Back Exam Back exam: Present: normal inspection - Neurological Exam Neurological exam: Present: alert, oriented X3 - Psychiatric Psychiatric exam: Present: normal affect, normal mood - Skin Skin exam: Present: warm, dry, intact, normal color. Absent: rash ED Course Vital Signs 12/14/18 12/14/18 19:08 19:13 Temperature 98 F Pulse Rate 119 H Respiratory 16 Rate Blood Pressure 127/87 O2 Sat by Pulse 97 Oximetry Critical care attestation.: If time is entered above; I have spent that time in minutes in the direct care of this critically ill patient, excluding procedure time. ED Disposition Clinical Impression: Conjunctivitis, Red eye Disposition: DC-01 TO HOME OR SELFCARE Is pt being admited?: No Does the pt Need Aspirin: No Condition: Stable Prescriptions: Ciprofloxacin 0.2%(Nf) [Ciprofloxacin OTIC] 0.25 ml AD BID #1 bottle Olopatadine HCl [Pataday 0.2%] 1 drop OP QDAY #1 bottle Referrals: NAVEEN CARABALLO MD [Primary Care Provider] - 3-5 Days
== END 2018-12-14 22:32 | disposition home or self-care (01) ==
LOC: ED 18:30
DX: H10.9 Unspecified conjunctivitis (principal); Z79.899 Other long term (current) drug therapy; Z87.442 Personal history of urinary calculi
CPT/HCPCS: 99283

== ENCOUNTER 2021-03-22 10:20 | Emergency (ER) | payer SELFPAY ==
--- NOTE | 2021-03-22 11:29 | Emergency Department Report ---
ED General Adult HPI - General Chief complaint: Eye Problems Stated complaint: R EYE PAIN/REDNESS Time Seen by Provider: 03/22/21 10:27 Source: patient Mode of arrival: Ambulatory Limitations: No Limitations - History of Present Illness Initial comments: 40-year-old -[place] female patient presents with complaints of right eye redness and pain x3 days. She states her symptoms began in her left eye last week, however the symptoms resolved with using leftover ciprofloxacin drops that June 2020. She denies wearing contact lenses, photophobia, foreign body sensation, trauma to the eye, or vision changes. She rates her pain as a 3/10 in severity and describes it as a dull ache. She states there has been some mild drainage but has not woken up with her eye crusted shut. Patient has also been using antihistamine drops for the eye without relief. - Related Data Previous Rx's Medication Instructions Recorded Last Taken Type hydrOXYzine HCL [Atarax] 25 mg PO Q6HR PRN #20 tablet 08/19/18 Unknown Rx EPINEPHrine [Epipen] 0.3 mg IJ ONCE PRN #1 auto.injct 10/08/18 Unknown Rx Loratadine 10 mg PO DAILY 30 Days #30 tablet 10/08/18 Unknown Rx methylPREDNISolone [Medrol 4MG 4 mg PO FS #1 tab.ds.pk 11/23/18 Unknown Rx DOSEPAK (21 tabs)] Azithromycin(Nf)1% Ophth Soln 1 drops OS QDAY #1 bottle 12/08/18 Unknown Rx [Azasite 1% Ophth Soln] Gentamicin 0.3% Ophth Soln 1 drops OP Q4H 7 Days #1 bottle 12/09/18 Unknown Rx Ciprofloxacin 0.2%(Nf) 0.25 ml AD BID #1 bottle 12/14/18 Unknown Rx [Ciprofloxacin OTIC] Ciprofloxacin HCl [Ciloxan] 1 drop OP Q4-6H 5 Days #1 bottle 12/14/18 Unknown Rx Olopatadine HCl [Pataday 0.2%] 1 drop OP QDAY #1 bottle 12/14/18 Unknown Rx Erythromycin [Erythromycin Ophth 1 cm OU Q3H 7 Days #1 tube 03/22/21 Unknown Rx Oint] Ibuprofen [Motrin 600 MG tab] 1 tab PO Q8H PRN #15 tab 03/22/21 Unknown Rx Allergies Allergy/AdvReac Type Severity Reaction Status Date / Time No Known Allergies Allergy Verified 12/08/18 18:52 ED Review of Systems ROS: Stated complaint: R EYE PAIN/REDNESS Other details as noted in HPI Constitutional: denies: chills, fever, malaise Eyes: denies: vision change Skin: denies: change in color Neurological: denies: headache, numbness, paresthesias ED Past Medical Hx - Past Medical History Previous Medical History?: Yes Hx Kidney Stones: Yes Additional medical history: Astigmatism - Surgical History Past Surgical History?: Yes Additional Surgical History: FOR KIDNEY STONES - Social History Smoking Status: Never Smoker Substance Use Type: None - Medications Home Medications: Home Medications Medication Instructions Recorded Confirmed Last Taken Type hydrOXYzine HCL [Atarax] 25 mg PO Q6HR PRN #20 tablet 08/19/18 Unknown Rx EPINEPHrine [Epipen] 0.3 mg IJ ONCE PRN #1 auto.injct 10/08/18 Unknown Rx Loratadine 10 mg PO DAILY 30 Days #30 tablet 10/08/18 Unknown Rx methylPREDNISolone [Medrol 4MG 4 mg PO FS #1 tab.ds.pk 11/23/18 Unknown Rx DOSEPAK (21 tabs)] Azithromycin(Nf)1% Ophth Soln 1 drops OS QDAY #1 bottle 12/08/18 Unknown Rx [Azasite 1% Ophth Soln] Gentamicin 0.3% Ophth Soln 1 drops OP Q4H 7 Days #1 bottle 12/09/18 Unknown Rx Ciprofloxacin 0.2%(Nf) 0.25 ml AD BID #1 bottle 12/14/18 Unknown Rx [Ciprofloxacin OTIC] Ciprofloxacin HCl [Ciloxan] 1 drop OP Q4-6H 5 Days #1 bottle 12/14/18 Unknown Rx Olopatadine HCl [Pataday 0.2%] 1 drop OP QDAY #1 bottle 12/14/18 Unknown Rx Erythromycin [Erythromycin Ophth 1 cm OU Q3H 7 Days #1 tube 03/22/21 Unknown Rx Oint] Ibuprofen [Motrin 600 MG tab] 1 tab PO Q8H PRN #15 tab 03/22/21 Unknown Rx ED Physical Exam - General Limitations: No Limitations General appearance: alert, in no apparent distress - Head Head exam: Present: atraumatic, normocephalic - Eye Eye exam: Present: PERRL, EOMI, conjunctival injection (left eye). Absent: scl eral icterus, periorbital swelling, periorbital tenderness - Respiratory Respiratory exam: Absent: respiratory distress - Cardiovascular Cardiovascular Exam: Present: regular rate - Neurological Exam Neurological exam: Present: alert, oriented X3 - Psychiatric Psychiatric exam: Present: normal affect, normal mood - Skin Skin exam: Present: warm, dry, intact, normal color. Absent: rash ED Course Vital Signs 03/22/21 11:03 Temperature 98.4 F Pulse Rate 72 Respiratory 16 Rate Blood Pressure 121/77 O2 Sat by Pulse 100 Oximetry ED Medical Decision Making - Medical Decision Making 40-year-old -[place] female patient presents with complaints of right eye redness and pain x3 days. She states her symptoms began in her left eye last week, however the symptoms resolved with using leftover ciprofloxacin drops that June 2020. She denies wearing contact lenses, photophobia, foreign body sensation, trauma to the eye, or vision changes. She rates her pain as a 3/10 in severity and describes it as a dull ache. She states there has been some mild drainage but has not woken up with her eye crusted shut. Patient has also been using antihistamine drops for the eye without relief. Patient to discontinue ciprofloxacin drops. She is to start erythromycin ointment. Discussed need for follow-up with ophthalmology as needed. She is well-appearing, her vitals are normal, she is stable for discharge home. Strict return precautions were discussed in detail with patient who verbalizes understanding. Critical care attestation.: If time is entered above; I have spent that time in minutes in the direct care of this critically ill patient, excluding procedure time. ED Disposition Clinical Impression: Conjunctivitis, left eye Disposition: HOME / SELF CARE / HOMELESS Is pt being admited?: No Condition: Stable Instructions: How to Use Eye Drops and Eye Ointments, Bacterial Conjunctivitis, Adult, [id number] Prescriptions: Erythromycin [Erythromycin Ophth Oint] 1 cm OU Q3H 7 Days #1 tube Ibuprofen [Motrin 600 MG tab] 1 tab PO Q8H PRN #15 tab PRN Reason: pain Referrals: TIMI BRIDGES MD [Staff Physician] - as needed
[2021-03-22 11:44] VITALS: BP 117/83
== END 2021-03-22 11:59 | disposition home or self-care (01) ==
LOC: ED 10:20
DX: H10.9 Unspecified conjunctivitis (principal); Z87.442 Personal history of urinary calculi; Z79.899 Other long term (current) drug therapy
CPT/HCPCS: 99282